=== PATIENT | female | born 1970 | race Caucasian/White ===

== ENCOUNTER 2016-12-03 14:19 | Emergency (ER) | payer OTHER | END 2016-12-03 16:35 | disposition home or self-care (01) | LOC: FER 14:19 | DX: M94.0 Chondrocostal junction syndrome [Tietze] (principal); I51.9 Heart disease, unspecified; R51 Headache; J44.9 Chronic obstructive pulmonary disease, unspecified; F41.9 Anxiety disorder, unspecified; Z88.8 Allergy status to other drugs, medicaments and biological substances; Z91.041 Radiographic dye allergy status; Z91.030 Bee allergy status; Z79.899 Other long term (current) drug therapy; Z79.51 Long term (current) use of inhaled steroids | CPT/HCPCS: 71020; 71100; 99283 ==

== ENCOUNTER → 2021-04-22 | Day surgery (SDC) | payer OTHER ==
[~2021-04-22] VITALS: Ht 154.9 cm; Wt 61.7 kg
[~2021-04-22] MED LIST: ACETAMINOPHEN500 M1 PO; ATIVAN0.5 MG PO; BACTRIM DS TAB1 EACH PO; BENTYL10 MG PO; CLARITIN-D 241 EACH PO; COLACE100 MG PO; DIAZEPAM 5MG TAB5 MG PO; IBUPROFEN800 MG PO; IPRAT-ALBUT 0.5-3 ML INH; MEDROL 4MG DOSEP4 MG PO; MELATONIN10 M2 PO; MIRALAX17 GM PO; NEURONTIN300 MG PO; OXY-IR 5MG5 MG PO; PAXIL10 MG PO; PAXIL20 MG PO; PERCOCET 5-3251 EACH PO; PHENERGAN12.5 M1 PO; PROTONIX 40MG T40 MG PO; ROBAXIN750 MG PO; VENTOLIN HFA IN18 GM INH; ZOFRAN4 MG SL; ZOFRAN8 MG PO
== END | disposition home or self-care (01) ==
LOC: FAS 11:14
DX: K64.5 Perianal venous thrombosis (principal); F17.210 Nicotine dependence, cigarettes, uncomplicated; J44.9 Chronic obstructive pulmonary disease, unspecified; K21.9 Gastro-esophageal reflux disease without esophagitis; Z88.8 Allergy status to other drugs, medicaments and biological substances; Z91.09 Other allergy status, other than to drugs and biological substances; Z98.51 Tubal ligation status; E03.9 Hypothyroidism, unspecified
CPT/HCPCS: 93005; J0690; J1100; J1644; J1885; J2250; J2405; J2704; J3010; J7120

== ENCOUNTER 2021-07-04 11:26 | Emergency (ER) | payer OTHER ==
[2021-07-04 12:12] LABS: BASOPHIL 0.3 % (0-2); HCT 45.3 % (37.0-47.0); HGB 15.3 g/dl (12.5-16.0); LYMPHOCYTE 11.1 % (15-48); MCH 30.1 pg (25.0-31.0); MCHC 33.8 g/dL (32.0-36.0); MONOCYTE 5.6 % (0-12); MPV 10.4 fL (6.0-9.5); NEUTROPHIL 81.6 % (41-80); NRBC 0; PLT 302 K/uL (150-400); RBC 5.09 M/uL (4.20-5.40); RDW 12.3 % (11.5-14.0); WBC 20.5 K/uL (4.0-10.5)
[2021-07-04 12:24] LABS: LACTIC ACID 1.6 mmol/L (0.4-1.9)
[2021-07-04 12:35] LABS: ALBUMIN 4.5 g/dL (3.4-5.0); BILIRUBIN - TOTAL 0.5 mg/dL (0.2-1.0); BUN/CREAT RATIO (CALC) 18.3 RATIO; CREATININE 0.82 mg/dL (0.51-0.95); GLOBULIN (CALCULATION) 3.8 g/dL; POTASSIUM 3.6 mmol/L (3.5-5.1); TOTAL PROTEIN 8.3 g/dL (6.4-8.2)
[2021-07-04 12:52] LABS: BILIRUBIN NEGATIVE (NEGATIVE); BLOOD NEGATIVE Ery/uL (NEGATIVE); CLARITY CLEAR (CLEAR); COLOR YELLOW (YELLOW); GLUCOSE (U) NORMAL (NORMAL); LEUKOCYTES TRACE Leu/uL (NEGATIVE); NITRITE NEGATIVE (NEGATIVE); PROTEIN NEGATIVE (NEGATIVE); UROBILINOGEN 0.2 mg/dL (0.2-1.0)
[2021-07-04 13:03] LABS: AMPHETAMINES NEGATIVE (NEGATIVE); BARBITURATES NEGATIVE (NEGATIVE); ECSTASY (MDMA) NEGATIVE (NEGATIVE); MARIJUANA (THC) POSITIVE (NEGATIVE); METHADONE NEGATIVE (NEGATIVE); OPIATES NEGATIVE (NEGATIVE); OXYCODONE NEGATIVE (NEGATIVE)
[2021-07-04 13:05] LABS: CORONAVIRUS 2019 SARS-COV-2 NEGATIVE (NEGATIVE); INFLUENZA A NAA NEGATIVE (NEGATIVE)
[2021-07-04 13:18] LABS: BACTERIA 1+; URINARY WBC RARE
[2021-07-04] MEDS ORDERED: ONDANSETRON ODT4 MG PO (15:06)
== END 2021-07-04 15:30 | disposition home or self-care (01) ==
LOC: FER 11:26
PROVIDERS: Emergency Medicine
DX: K52.9 Noninfective gastroenteritis and colitis, unspecified (principal); J44.9 Chronic obstructive pulmonary disease, unspecified; Z20.822 Contact with and (suspected) exposure to COVID-19; Z91.041 Radiographic dye allergy status
CPT/HCPCS: 36415; 36600; 70450; 71045; 80053; 80305; 81001; 82803; 83605; 84145; 84484; 85025; 93005; J1885; J2405; J7030; U0002

== ENCOUNTER 2022-02-07 22:42 | Emergency (ER) | payer OTHER ==
[~2022-02-07 22:42] MED LIST changes: +ONDANSETRON ODT4 MG PO
[2022-02-07 23:23] LABS: BASOPHIL 0.5 % (0-2); EOSINOPHIL 1.5 % (0-5); HCT 37.5 % (37.0-47.0); HGB 12.8 g/dl (12.5-16.0); MCH 29.8 pg (25.0-31.0); MCHC 34.1 g/dL (32.0-36.0); MCV 87.2 fL (78.0-100.0); MONOCYTE 8.5 % (0-12); NEUTROPHIL 43.2 % (41-80); NRBC 0; PLT 232 K/uL (150-400); RDW 12.3 % (11.5-14.0)
[2022-02-07 23:31] LABS: INR 0.98 (0.9-1.2); PROTHROMBIN TIME 12.7 SECONDS (11.9-13.9); PTT 30.7 SECONDS (24.9-34.6)
[2022-02-07 23:49] LABS: ALBUMIN 3.8 g/dL (3.4-5.0); BILIRUBIN - TOTAL 0.2 mg/dL (0.2-1.0); BUN/CREAT RATIO (CALC) 18.6 RATIO; CREATININE 0.86 mg/dL (0.51-0.95); GLOBULIN (CALCULATION) 3.4 g/dL; POTASSIUM 3.6 mmol/L (3.5-5.1); TOTAL PROTEIN 7.2 g/dL (6.4-8.2)
[2022-02-08 00:26] LABS: CORONAVIRUS 2019 SARS-COV-2 NEGATIVE (NEGATIVE); INFLUENZA A NAA NEGATIVE (NEGATIVE)
[2022-02-08 00:38] LABS: AMPHETAMINES NEGATIVE (NEGATIVE); BARBITURATES NEGATIVE (NEGATIVE); ECSTASY (MDMA) NEGATIVE (NEGATIVE); MARIJUANA (THC) POSITIVE (NEGATIVE); METHADONE NEGATIVE (NEGATIVE); OPIATES NEGATIVE (NEGATIVE); OXYCODONE NEGATIVE (NEGATIVE)
== END 2022-02-08 02:24 | disposition home or self-care (01) ==
LOC: FER 22:42
PROVIDERS: Emergency Medicine
DX: R07.89 Other chest pain (principal); J44.9 Chronic obstructive pulmonary disease, unspecified; F17.200 Nicotine dependence, unspecified, uncomplicated; Z88.5 Allergy status to narcotic agent; Z91.041 Radiographic dye allergy status; Z20.822 Contact with and (suspected) exposure to COVID-19
CPT/HCPCS: 36415; 71045; 80053; 80305; 84484; 85025; 85610; 85730; 93005; J1885; U0002